=== PATIENT | female | born 1985 | race American Indian/Alaskan Native ===

== ENCOUNTER 2020-07-19 01:05 | Emergency (ER) | payer SELFPAY ==
[2020-07-19] MEDS ORDERED: ASPIRIN 325 MG TAB PO ONE (01:22)
[2020-07-19 02:05] LABS: Basophils # (Auto) 0.1 K/mm3 (0.0-0.1); Basophils % (Auto) 0.9 % (0.0-1.8); Eosinophils # (Auto) 0.1 K/mm3 (0.0-0.4); Eosinophils % (Auto) 1.8 % (0.0-4.3); Hematocrit 37.8 % (30.3-42.9); Hemoglobin 12.6 gm/dl (10.1-14.3); Lymphocytes # (Auto) 2.2 K/mm3 (1.2-5.4); Lymphocytes % (Auto) 37.1 % (13.4-35.0); Mean Corpuscular HGB Conc 33 % (30-34); Mean Corpuscular Volume 92 fl (79-97); Monocytes # (Auto) 0.5 K/mm3 (0.0-0.8); Monocytes % (Auto) 8.7 % (0.0-7.3); Platelet Count 280 K/mm3 (140-440); Red Blood Count 4.13 M/mm3 (3.65-5.03); Red Cell Distribution Width 12.9 % (13.2-15.2)
--- NOTE | 2020-07-19 02:06 | XRay Report ---
CHEST 2 VIEWS INDICATION: CHEST PAIN. COMPARISON: None FINDINGS: SUPPORT DEVICES: None. HEART: Within normal limits. LUNGS/PLEURA: No acute air space or interstitial disease. No pneumothorax. ADDITIONAL FINDINGS: None. IMPRESSION: 1. No acute findings. Signer Name: Oracio Castillo MD Signed: 07/19/2020 2:01 AM Workstation Name: [id number]
[2020-07-19 02:37] LABS: Alanine Aminotransferase 44 units/L (7-56); Albumin 4.4 g/dL (3.9-5); BUN/Creatinine Ratio 20; Blood Urea Nitrogen 16 mg/dL (7-17); Calcium 9.4 mg/dL (8.4-10.2); Hemolysis Index 4
[2020-07-19] MEDS ORDERED: CYCLOBENZAPRINE 10 MG TAB PO ONE (03:58)
[2020-07-19] MEDS ORDERED: ACETAMINOPHEN 500 MG TAB PO ONE (03:58)
--- NOTE | 2020-07-19 06:25 | Emergency Department Report ---
ED Chest Pain HPI - General Chief Complaint: Chest Pain Stated Complaint: CHEST PAINS Source: patient Mode of arrival: Ambulatory Limitations: No Limitations - History of Present Illness Initial Comments: Patient is a 34-year-old -German female with no past medical history and who does not smoke cigarettes or drink alcohol presents to the ED with complaint of acute onset persistent nontraumatic non-radiating right-sided chest wall pain constantly for the last 1 week, worse in the last 2 days. 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 Patient states that the pain is sharp, constant and worse with palpation, movement or twisting. Patient denies cough, numbness and tingling or weakness of upper extremities bilaterally, headache, shortness of breath, neck pain, back pain, abdominal pain, nausea and vomiting, fever, chills, nasal and sinus congestion, palpitations, dizziness or syncope. MD Complaint: chest pain (right sided chest pain) -: Sudden, week(s) (1) Onset: during exertion, awoke with symptoms Pain Location: right chest Pain Radiation: none Severity: severe Severity scale (0 -10): 7 Quality: aching, sharp Consistency: constant Improves With: nothing Worsens With: palpation, movement re: denies: nausea, vomting, diaphoresis, dyspnea, sense of impending doom Other Symptoms: denies: cough, fever, syncope, rash, acid taste in mouth, leg swelling, palpitations, burping Treatments Prior to Arrival: none Aspirin use within the Past 7 Days: (0) No - Related Data On Oral Contraceptives: No Previous Rx's Medication Instructions Recorded Last Taken Type Baclofen [Lioresal] 10 mg PO TID PRN #21 tab 07/19/20 Unknown Rx Naproxen 500 mg PO Q12H PRN #30 tablet 07/19/20 Unknown Rx Allergies Allergy/AdvReac Type Severity Reaction Status Date / Time No Known Allergies Allergy Unverified 07/19/20 01:22 Heart Score - HEART Score History: Slightly suspicious EKG: Normal Age: < 45 Risk factors: No known risk factors Troponin: < normal limit HEART Score: 0 - EKG Read Time Time EKG Completed: 01:14 EKG Read Time: 01:19 - Critical Actions Critical Actions: 0-3 pts:0.9-1.7%risk of adverse cardiac event.Candidate for discharge ED Review of Systems ROS: Stated complaint: CHEST PAINS Other details as noted in HPI Constitutional: denies: chills, fever Eyes: denies: eye pain, eye discharge, vision change ENT: denies: ear pain, throat pain Respiratory: denies: cough, shortness of breath, wheezing Cardiovascular: chest pain (Right-sided chest pain). denies: palpitations Endocrine: no symptoms reported Gastrointestinal: denies: abdominal pain, nausea, diarrhea Genitourinary: denies: urgency, dysuria, discharge Musculoskeletal: denies: back pain, joint swelling, arthralgia Skin: denies: rash, lesions Neurological: denies: headache, weakness, paresthesias Psychiatric: denies: anxiety, depression Hematological/Lymphatic: denies: easy bleeding, easy bruising ED Past Medical Hx - Past Medical History Previous Medical History?: No - Surgical History Past Surgical History?: No - Social History Smoking Status: Never Smoker Substance Use Type: None - Medications Home Medications: Home Medications Medication Instructions Recorded Confirmed Last Taken Type Baclofen [Lioresal] 10 mg PO TID PRN #21 tab 07/19/20 Unknown Rx Naproxen 500 mg PO Q12H PRN #30 tablet 07/19/20 Unknown Rx ED Physical Exam - General Limitations: No Limitations General appearance: alert, in no apparent distress - Head Head exam: Present: atraumatic, normocephalic, normal inspection - Eye Eye exam: Present: normal appearance, PERRL, EOMI Pupils: Present: normal accommodation - ENT ENT exam: Present: normal exam, normal orophraynx, mucous membranes moist, TM's normal bilaterally, normal external ear exam - Neck Neck exam: Present: normal inspection, full ROM - Respiratory Respiratory exam: Present: normal lung sounds bilaterally, chest wall tenderness (Palpable reproducible anterior chest wall tenderness). Absent: respiratory di stress, wheezes, rales, rhonchi, accessory muscle use, decreased breath sounds, prolonged expiratory - Cardiovascular Cardiovascular Exam: Present: regular rate, normal rhythm, normal heart sounds. Absent: systolic murmur, diastolic murmur, rubs, gallop - GI/Abdominal GI/Abdominal exam: Present: soft, normal bowel sounds. Absent: tenderness, hyperactive bowel sounds - Extremities Exam Extremities exam: Present: normal inspection, full ROM, normal capillary refill - Back Exam Back exam: Present: normal inspection, full ROM. Absent: tenderness, CVA tenderness (R), CVA tenderness (L), muscle spasm, paraspinal tenderness - Neurological Exam Neurological exam: Present: alert, oriented X3, CN II-XII intact, normal gait, reflexes normal - Psychiatric Psychiatric exam: Present: normal affect, normal mood, anxious - Skin Skin exam: Present: warm, dry, intact, normal color. Absent: rash ED Course Vital Signs 07/19/20 07/19/20 01:25 01:26 Temperature 98.1 F Pulse Rate 87 Respiratory 18 Rate Blood Pressure 107/66 [Left] O2 Sat by Pulse 96 Oximetry JOSE score - Jose Score Age > 65: (0) No Aspirin use within the Past 7 Days: (0) No 3 or more CAD Risk Factors: (0) No 2 or more Angina events in past 24 hrs: (0) No Known CAD with more than 50% Stenosis: (0) No Elevated Cardiac Markers: (0) No ST Deviation Greater than 0.5mm: (0) No JOSE Score: 0 ED Medical Decision Making - Lab Data Result diagrams: 07/19/20 01:36 07/19/20 01:36 - EKG Data EKG shows normal: sinus rhythm Rate: normal - EKG Data Interpretation: normal EKG 07/19/20 06:30 The EKG shows normal sinus rhythm with a ventricular rate of [address] or T wave abnormalities. - Radiology Data Radiology results: report reviewed, image reviewed [address] [address] XRay Report Signed Patient: NANCY ESPINOZA MR#: [id number] : 1985 Acct:[id number] Age/Sex: 34 / F ADM Date: 07/19/20 Loc: ED Attending Dr: Ordering Physician: TERESA VYAS MD Date of Service: 07/19/20 Procedure(s): XR chest routine 2V Accession Number(s): [id number] cc: ED MD ASAEL Fluoro Time In Minutes: CHEST 2 VIEWS INDICATION: CHEST PAIN. COMPARISON: None FINDINGS: SUPPORT DEVICES: None. HEART: Within normal limits. LUNGS/PLEURA: No acute air space or interstitial disease. No pneumothorax. ADDITIONAL FINDINGS: None. IMPRESSION: 1. No acute findings. Signer Name: Oracio Castillo MD Signed: 07/19/2020 2:01 AM Workstation Name: [id number] Transcribed By: LEA Dictated By: Oracio Castillo MD Electronically Authenticated By: Oracio Castillo MD Signed Date/Time: 07/19/20200 DD/ 0 TD/TT: - Medical Decision Making This is a 34-year-old -German female with no past medical history and who does not smoke cigarettes or drink alcohol presents to the ED with complaint of acute onset persistent nontraumatic non-radiating right-sided chest wall pain constantly for the last 1 week, worse in the last 2 days. 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 Patient states that the pain is sharp, constant and worse with palpation, movement or twisting. In the ED, patient is alert and oriented x3 and is not in any distress. Patient's vital signs are stable in triage. Chest x-ray shows no acute cardiopulmonary abnormalities or pneumonitis. EKG shows normal sinus rhythm with a ventricular rate of [address] or T wave abnormalities or any pathological Q waves. Lab test results were reviewed and are all nonactionable including initial and 3-hour troponin levels. Patient's heart score is 0, and patient is PERC negative per Wells criteria. Patient was treated in the ED with pain medication based on the physical exam findings of palpable reproducible anterior chest wall tenderness. Patient symptoms are likely due to acute costochondritis or muscle strain of chest wall given the fact that the patient has no cardiac risk factors and her heart score is 0. On reevaluation, patient's pain is well controlled medications. Patient will discharge home on anti-inflammatory pain medications and muscle relaxants and was advised to follow-up with her primary care physician in 5 to 7 days for reevaluation or return to the ED immediately if symptoms get worse. - Differential Diagnosis ACS; muscle strain; costochondritis; pneumonia; PE; dissection; Critical care attestation.: If time is entered above; I have spent that time in minutes in the direct care of this critically ill patient, excluding procedure time. ED Disposition Clinical Impression: Right-sided chest wall pain, Acute costochondritis, Muscle strain of anterior chest wall Disposition: DC-01 TO HOME OR SELFCARE Is pt being admited?: No Does the pt Need Aspirin: No Condition: Stable Instructions: Costochondritis, [id number], Muscle Strain, [id number], Nonspecific Chest Pain, Adult, [id number], Chest Wall Pain, [id number] Additional Instructions: EKG shows normal sinus rhythm with a ventricular rate of [address] or T wave abnormalities. Chest x-ray shows no acute cardiopulmonary abnormalities or pneumonitis. All lab test results were reviewed and are all nonactionable. Your cardiac risk factor is 0 and therefore based on the history and physical exam findings of reproducible palpable right chest wall tenderness, your symptoms are likely due to acute costochondritis or muscle strain of right chest wall. Therefore take medications as needed for pain, drink plenty of fluids and follow-up with your primary care physician in 5 to 7 days for reevaluation. Return to the ED immediately if symptoms get worse. Prescriptions: Baclofen [Lioresal] 10 mg PO TID PRN #21 tab PRN Reason: Muscle Spasm Naproxen 500 mg PO Q12H PRN #30 tablet PRN Reason: Pain , Severe (7-10) Referrals: [facility] [Provider Group] - 3-5 Days Forms: Work/School Release Form(ED) Time of Disposition: 06:25 Print Language: CHADIAN
[2020-07-19 06:58] VITALS: BP 128/88
--- NOTE | 2020-07-20 13:44 | Electrocardiograph Report ---
[facility] Test Date: 2020-07-19 Test Time: 01:14:24 Pat Name: NANCY ESPINOZA Department: Room: Gender: F Conveyor Tender: : 1985 Requested By: ELVIN MELARA Order Number: [id number] Reading MD: Bibiana Bloom Measurements Intervals Melvin Rate: 90 P: 70 TX: 170 QRS: 78 QRSD: 89 T: 64 QT: 360 QTc: 442 Interpretive Statements Sinus rhythm No previous ECG available for comparison Electronically Signed On 07-20-2020 13:43:36 EDT by Bibiana Bloom
== END 2020-07-19 06:00 | disposition home or self-care (01) ==
LOC: ED 01:05
DX: S29.011A Strain of muscle and tendon of front wall of thorax, initial encounter (principal); M94.0 Chondrocostal junction syndrome [Tietze]; R07.89 Other chest pain; Z79.899 Other long term (current) drug therapy; X50.0XXA Overexertion from strenuous movement or load, initial encounter; Y93.89 Activity, other specified; Y92.89 Other specified places as the place of occurrence of the external cause; Y99.0 Civilian activity done for income or pay
CPT/HCPCS: 36415; 71046; 80053; 84484; 85025; 93005